=== PATIENT | male | born 1990 | race Hispanic/Latino ===

== ENCOUNTER 2018-07-20 20:59 | Emergency (ER) | payer SELFPAY ==
[2018-07-20] MEDS ORDERED: DEXAMETHASONE 10 MG/ML VIAL ONE (21:57)
[2018-07-20 21:58] LABS: Absolute Monocytes 0.6 K/uL (0.1-1.3); Absolute Neutrophil 6.9 K/uL (1.8-8.0); Basophils % 0.4 % (0-1.3); Eosinophils % 2.9 % (0-4.4); Lymphocytes % 20.1 % (15.3-44.8); MPV 9.3 fL (7.6-11.3); Monocytes % 6.3 % (3.3-12.3); RBC Red Blood Cell Count 4.75 M/uL (4.33-5.43)
[2018-07-20] MEDS ORDERED: ONDANSETRON 4 MG/2 ML VIAL ONE (21:58)
[2018-07-20] MEDS ORDERED: FAMOTIDINE 20 MG/2 ML VIAL IV ONE (21:58)
[2018-07-20] MEDS ORDERED: NA CHLORIDE 0.9% 1,000 ML ONE ×2 (21:58→23:44)
[2018-07-20] MEDS ORDERED: METOCLOPRAMIDE 10 MG/2mL INJ ONE (21:58)
[2018-07-20] MEDS ORDERED: DIPHENHYDRAMINE 50 MG/ML VIAL ONE (21:58)
[2018-07-20 21:59] LABS: Protime INR 1.01
[2018-07-20 22:06] LABS: Potassium 4.1 mmol/L (3.5-5.1)
[2018-07-20] MEDS ORDERED: KETOROLAC 30 MG/ML INJ ONE (23:05)
--- NOTE | 2018-07-20 23:25 | EDPHYS ---
Physician Documentation [facility] Name: Glenroy Hedrick III Age: 27 yrs Sex: Male : 1990 Arrival Date: 07/20/2018 Time: 21:01 Bed 19 Private MD: ED Physician Oscar Hoover HPI: 07/20 21:45 This 27 yrs old Male presents to ER via Ambulatory with complaints of cp Headache, Eye Pain, Vomiting, pressure in head. 21:45 The patient complains of pain to the top of head, left side of the back of head and cp right side of the back of head. 21:45 The patient describes the headache as aching, constant. cp 21:45 Onset: The symptoms/episode began/occurred this morning, and became worse today. cp Associated signs and symptoms: Pertinent positives: nausea, Photophobia vomiting, Pertinent negatives: altered mental status, fever, neck stiffness, paresthesias, sinus congestion, sinus tenderness, weakness. Severity of symptoms: in the emergency department the pain a " 7" out of "10". Headache History: Denies prior headaches. Historical: - Allergies: 21:10 No Known Allergies; aa1 - Home Meds: 21:10 None [Active]; aa1 - PMHx: 21:10 None; aa1 - PSHx: 21:10 None; aa1 - Immunization history:: Flu vaccine is not up to date. - Social history:: Smoking status: Patient uses tobacco products, smokes one-half pack cigarettes per day. - Ebola Screening: : No symptoms or risks identified at this time. ROS: 21:50 Constitutional: Negative for body aches, chills, fever, poor PO intake. cp 21:50 Eyes: Negative for injury, pain, redness, and discharge. cp 21:50 ENT: Negative for drainage from ear(s), ear pain, sinus congestion, sinus pain, sore throat, difficulty swallowing, difficulty handling secretions. 21:50 Neck: Negative for pain with movement, pain at rest, stiffness, swollen nodes. 21:50 Cardiovascular: Negative for chest pain, edema, palpitations. 21:50 Respiratory: Negative for cough, shortness of breath, wheezing. 21:50 Abdomen/GI: Positive for nausea, vomiting, Negative for abdominal pain, diarrhea, constipation, hematemesis. 21:50 Back: Negative for pain at rest, pain with movement. 21:50 : Negative for urinary symptoms, flank pain, testicular pain 21:50 Skin: Negative for cellulitis, rash. 21:50 Neuro: Positive for headache, Negative for altered mental status, dizziness, numbness, tingling, weakness. 21:50 All other systems are negative. Exam: 22:00 Head/Face: Normocephalic, atraumatic. cp 22:00 Constitutional: The patient appears in no acute distress, alert, awake, non-diaphoretic, non-toxic, well developed, well nourished, uncomfortable. 22:00 Eyes: Periorbital structures: appear normal, Pupils: equal, round, and reactive to cp light and accomodation, Extraocular movements: intact throughout, Conjunctiva: normal, no exudate, no injection, Sclera: no appreciated abnormality, Lids and lashes: appear normal, bilaterally. 22:00 ENT: External ear(s): are unremarkable, Ear canal(s): are normal, clear, TM's: dullness, bilaterally, Nose: is normal, Mouth: Lips: moist, Oral mucosa: pink and intact, moist, Posterior pharynx: is normal, airway is patent, no erythema, no exudate, Voice: is normal. 22:00 Neck: ROM/movement: is normal, is supple, no range of motions limitations, no meningismus, no nuchal rigidity, Lymph nodes: no appreciated lymphadenopathy. 22:00 Chest/axilla: Inspection: normal, Palpation: is normal, no crepitus, no tenderness. 22:00 Cardiovascular: Rate: normal, Rhythm: regular. 22:00 Respiratory: the patient does not display signs of respiratory distress, Respirations: normal, no use of accessory muscles, no retractions, no splinting, no tachypnea, labored breathing, is not present, Breath sounds: are clear throughout, no decreased breath sounds, no stridor, no wheezing. 22:00 Abdomen/GI: Inspection: abdomen appears normal, Palpation: abdomen is soft and non-tender, in all quadrants. 22:00 Skin: no rash present. 22:00 Neuro: Orientation: to person, place \\T\\ time. Mentation: is normal, Cerebellar function: is grossly normal, Motor: moves all fours, strength is normal, Sensation: is normal. Vital Signs: 21:10 BP 137 / 88; Pulse 72; Resp 16; Temp 98.0; Pulse Ox 100% on R/A; Weight 90.72 kg (R); aa1 Height 5 ft. 11 in. (180.34 cm); Pain 7/10; 22:15 BP 113 / 72; Pulse 65; Resp 16 S; Temp 98(O); Pulse Ox 100% on R/A; Pain 5/10; cc3 23:11 BP 120 / 64; Pulse 61; Resp 15 S; Temp 98.1(O); Pulse Ox 100% on R/A; cc3 07/21 00:31 BP 114 / 55; Pulse 59; Resp 16; Pulse Ox 100% on R/A; mt 07/20 21:10 Body Mass Index 27.89 (90.72 kg, 180.34 cm) aa1 MDM: 07/20 21:25 Patient medically screened. cp 22:00 Differential diagnosis: cluster headache, hypertensive headache, meningitis, cp meningoencephalitis, migraine, subarachnoid bleed, subdural hematoma, tension headache. 23:18 Refusal of service: The patient/guardian displays adequate decision making capability cp and despite a detailed discussion of alternatives, benefits, risks, and consequences refuses: Lumbar Puncture procedure. 23:23 Data reviewed: vital signs, nurses notes, lab test result(s), radiologic studies, CT cp scan. 23:23 Counseling: I had a detailed discussion with the patient and/or guardian regarding: the cp historical points, exam findings, and any diagnostic results supporting the discharge/admit diagnosis, lab results, radiology results, to return to the emergency department if symptoms worsen or persist or if there are any questions or concerns that arise at home. Response to treatment: the patient's symptoms have markedly improved after treatment, and as a result, I will discharge patient. ED course: VSS. Patient reports headache improved and refuses spinal tap at this time. Will discharge to home for continued monitoring. 07/20 21:38 Order name: CBC with Diff; Complete Time: 22:07 cp 07/20 21:38 Order name: BMP; Complete Time: 22:07 cp 07/20 22:07 Interpretation: Normal except: GFR 82. cp 07/20 21:38 Order name: CT Head Brain wo Cont cp 07/20 21:38 Order name: PT-INR; Complete Time: 22:07 cp 07/20 21:38 Order name: IV; Complete Time: 21:44 cp Administered Medications: 21:45 Drug: Pepcid 20 mg Route: IVP; Site: right antecubital; cc3 22:15 Follow up: Response: No adverse reaction; Pain is decreased cc3 21:45 Drug: NS 0.9% 1000 ml Route: IV; Rate: 1 bolus; Site: right antecubital; cc3 23:00 Follow up: Response: No adverse reaction; IV Status: Completed infusion; IV Intake: cc3 1000ml 21:48 Drug: Zofran 4 mg Route: IVP; Site: right antecubital; cc3 22:38 Follow up: Response: No adverse reaction; Nausea is decreased cc3 21:51 Drug: Reglan 10 mg Route: IVP; Site: right antecubital; cc3 22:39 Follow up: Response: No adverse reaction; Pain is decreased cc3 21:54 Drug: Decadron - Dexamethasone 10 mg Route: IVP; Site: right antecubital; cc3 22:38 Follow up: Response: No adverse reaction; Pain is decreased cc3 21:58 Drug: Benadryl 25 mg Route: IVP; Site: right antecubital; cc3 22:38 Follow up: Response: No adverse reaction cc3 23:05 Drug: TORadol - Ketorolac 15 mg Route: IVP; Site: right antecubital; cc3 23:30 Follow up: Response: No adverse reaction; Pain is decreased cc3 23:30 Drug: NS 0.9% 1000 ml Route: IV; Rate: 1 bolus; Site: right antecubital; cc3 07/21 00:25 Follow up: Response: No adverse reaction; IV Status: Completed infusion; IV Intake: cc3 1000ml 07/20 23:31 Drug: morphine 2 mg Route: IVP; Site: right antecubital; cc3 07/21 00:05 Follow up: Response: No adverse reaction; Pain is decreased cc3 Disposition: 19:40 Co-signature as Attending Physician, Oscar Hoover MD. Disposition: 07/20/18 23:24 Discharged to Home. Impression: Headache. - Condition is Stable. - Discharge Instructions: General Headache Without Cause, Form - Excuse from Work, School, or Physical Activity. - Prescriptions for Fiorinal 50- 325-40 mg Oral Capsule - take 1 capsule by ORAL route every 4 hours As needed - not to exceed 6 capsules per day; 20 capsule. Ibuprofen 800 mg Oral Tablet - take 1 tablet by ORAL route every 8 hours As needed take with food; 30 tablet. Zofran 4 mg Oral Tablet - take 1 tablet by ORAL route every 12 hours As needed; 20 tablet. - Medication Reconciliation Form, Thank You Letter, Antibiotic Education, Prescription Opioid Use, Work release form form. - Follow up: Private Physician; When: 1 - 2 days; Reason: Recheck today's complaints. - Problem is new. - Symptoms have improved. Signatures: Dispatcher [employer] EDMS Roz Elliott RN RN aa1 Naveen Abad PA PA cp Starr, Gregory, MD MD gs Cordel, Charlene cc3 Corrections: (The following items were deleted from the chart) 00:35 07/20 23:24 07/20/2018 23:24 Discharged to Home. Impression: Headache. Condition is cc3 Stable. Forms are Medication Reconciliation Form, Thank You Letter, Antibiotic Education, Prescription Opioid Use. Follow up: Private Physician; When: 1 - 2 days; Reason: Recheck today's complaints. Problem is new. Symptoms have improved. cp
--- NOTE | 2018-07-20 23:25 | ER ---
Nurse's Notes [facility] Name: Glenroy Hedrick III Age: 27 yrs Sex: Male : 1990 Arrival Date: 07/20/2018 Time: 21:01 Bed 19 [facility] MD: Diagnosis: Headache Presentation: 07/20 21:09 Presenting complaint: Patient states: headache, vomiting, and pressure behind eyes aa1 since this am. Transition of care: patient was not received from another setting of care. Onset of symptoms was July 20, 2018. Risk Assessment: Do you want to hurt yourself or someone else? Patient reports no desire to harm self or others. Initial Sepsis Screen: Does the patient meet any 2 criteria? No. Patient's initial sepsis screen is negative. Does the patient have a suspected source of infection? No. Patient's initial sepsis screen is negative. Care prior to arrival: None. 21:09 Method Of Arrival: Ambulatory aa1 21:09 Acuity: DIONTE 3 aa1 Triage Assessment: 21:10 Headache History: The patient has had previous headaches and this one is different than aa1 previous episodes. General: Appears in no apparent distress. uncomfortable, Behavior is calm, cooperative, appropriate for age. 21:28 Pain: Pain currently is 7 out of 10 on a pain scale. Pain began this morning Also cc3 complains of nausea. Neuro: Level of Consciousness is awake, alert, obeys commands, Oriented to person, place, time, situation, Appropriate for age. Historical: - Allergies: 21:10 No Known Allergies; aa1 - Home Meds: 21:10 None [Active]; aa1 - PMHx: 21:10 None; aa1 - PSHx: 21:10 None; aa1 - Immunization history:: Flu vaccine is not up to date. - Social history:: Smoking status: Patient uses tobacco products, smokes one-half pack cigarettes per day. - Ebola Screening: : No symptoms or risks identified at this time. Screenin:28 Abuse screen: Denies threats or abuse. Denies injuries from another. Nutritional cc3 screening: No deficits noted. Tuberculosis screening: No symptoms or risk factors identified. Fall Risk Ambulatory Aid- None/Bed Rest/Nurse Assist (0 pts). Gait- Normal/Bed Rest/Wheelchair (0 pts) Mental Status- Oriented to own ability (0 pts). Assessment: 21:28 General: Appears in no apparent distress. uncomfortable, Behavior is calm, cooperative, cc3 appropriate for age. Pain: Complains of pain in head Pain currently is 7 out of 10 on a pain scale. Quality of pain is described as aching, Pain began this morning. Neuro: Level of Consciousness is awake, alert, obeys commands, Oriented to person, place, time, situation, Appropriate for age. Cardiovascular: Denies chest pain, Patient's skin is warm and dry. Respiratory: Airway is patent Respiratory effort is even, unlabored, Respiratory pattern is regular, symmetrical. GI: Abdomen is round non-distended. : No signs and/or symptoms were reported regarding the genitourinary system. EENT: Reports pressure behind his eyes. Derm: No signs and/or symptoms reported regarding the dermatologic system. Musculoskeletal: Circulation, motion, and sensation intact. Range of motion: intact in all extremities. 22:15 Reassessment: Patient appears in no apparent distress at this time. Patient and/or cc3 family updated on plan of care and expected duration. Pain level reassessed. Patient is alert, oriented x 3, equal unlabored respirations, skin warm/dry/pink. Patient came back from CT scan department, awaiting result. 23:10 Reassessment: Patient appears in no apparent distress at this time. Patient and/or cc3 family updated on plan of care and expected duration. Pain level reassessed. Patient is alert, oriented x 3, equal unlabored respirations, skin warm/dry/pink. 07/21 00:30 Reassessment: Patient appears in no apparent distress at this time. Patient and/or cc3 family updated on plan of care and expected duration. Pain level reassessed. Patient is alert, oriented x 3, equal unlabored respirations, skin warm/dry/pink. Ordered IV fluid is completed, SALEEM Abad discharged the patient home with prescription given. IV cannula removed and patient left ER vitally stable and ambulatory with his family. Patient denies pain at this time. Patient states feeling better. Patient states symptoms have improved. Vital Signs: 07/20 21:10 BP 137 / 88; Pulse 72; Resp 16; Temp 98.0; Pulse Ox 100% on R/A; Weight 90.72 kg (R); aa1 Height 5 ft. 11 in. (180.34 cm); Pain 7/10; 22:15 BP 113 / 72; Pulse 65; Resp 16 S; Temp 98(O); Pulse Ox 100% on R/A; Pain 5/10; cc3 23:11 BP 120 / 64; Pulse 61; Resp 15 S; Temp 98.1(O); Pulse Ox 100% on R/A; cc3 07/21 00:31 BP 114 / 55; Pulse 59; Resp 16; Pulse Ox 100% on R/A; mt 07/20 21:10 Body Mass Index 27.89 (90.72 kg, 180.34 cm) aa1 ED Course: 07/20 21:01 Patient arrived in ED. es 21:10 Triage completed. aa1 21:10 Arm band placed on left wrist. Patient placed in an exam room, on a stretcher. aa1 21:23 Naveen Abad PA is PHCP. cp 21:23 Oscar Hoover MD is Attending Physician. cp 21:28 Briana Cintron is Primary Nurse. cc3 21:28 Patient has correct armband on for positive identification. Placed in gown. Bed in low cc3 position. Call light in reach. Side rails up X 1. Pulse ox on. NIBP on. 21:44 Inserted saline lock: 20 gauge in right antecubital area, using aseptic technique. wy Blood collected. 21:50 Patient moved to NV via wheelchair. nj 22:00 CT completed. Patient tolerated procedure well. Patient moved back from NV. nj 22:09 CT Head Brain wo Cont In Process Unspecified. EDMS 07/21 00:30 No provider procedures requiring assistance completed. IV discontinued, intact, cc3 bleeding controlled, No redness/swelling at site. Pressure dressing applied. Administered Medications: 07/20 21:45 Drug: Pepcid 20 mg Route: IVP; Site: right antecubital; cc3 22:15 Follow up: Response: No adverse reaction; Pain is decreased cc3 21:45 Drug: NS 0.9% 1000 ml Route: IV; Rate: 1 bolus; Site: right antecubital; cc3 23:00 Follow up: Response: No adverse reaction; IV Status: Completed infusion; IV Intake: cc3 1000ml 21:48 Drug: Zofran 4 mg Route: IVP; Site: right antecubital; cc3 22:38 Follow up: Response: No adverse reaction; Nausea is decreased cc3 21:51 Drug: Reglan 10 mg Route: IVP; Site: right antecubital; cc3 22:39 Follow up: Response: No adverse reaction; Pain is decreased cc3 21:54 Drug: Decadron - Dexamethasone 10 mg Route: IVP; Site: right antecubital; cc3 22:38 Follow up: Response: No adverse reaction; Pain is decreased cc3 21:58 Drug: Benadryl 25 mg Route: IVP; Site: right antecubital; cc3 22:38 Follow up: Response: No adverse reaction cc3 23:05 Drug: TORadol - Ketorolac 15 mg Route: IVP; Site: right antecubital; cc3 23:30 Follow up: Response: No adverse reaction; Pain is decreased cc3 23:30 Drug: NS 0.9% 1000 ml Route: IV; Rate: 1 bolus; Site: right antecubital; cc3 07/21 00:25 Follow up: Response: No adverse reaction; IV Status: Completed infusion; IV Intake: cc3 1000ml 07/20 23:31 Drug: morphine 2 mg Route: IVP; Site: right antecubital; cc3 07/21 00:05 Follow up: Response: No adverse reaction; Pain is decreased cc3 Intake: 07/20 23:00 IV: 1000ml; Total: 1000ml. cc3 07/21 00:25 IV: 1000ml; Total: 2000ml. cc3 Outcome: 07/20 23:24 Discharge ordered by . antonio 07/21 00:30 Discharged to home ambulatory, with family. cc3 Condition: stable Discharge instructions given to patient, Instructed on discharge instructions, follow up and referral plans. medication usage, Demonstrated understanding of instructions, follow-up care, medications, Prescriptions given X 3. 00:35 Patient left the ED. cc3 Signatures: Dispatcher [employer] Roz Camacho RN RN aa1 Vicki Hein Corey, PA PA cp Jordan, Nathan nj Thompson, Briana Prtaer mt cc3 Corrections: (The following items were deleted from the chart) 07/20 22:39 22:15 BP 113 / 72; Pulse 65bpm; Resp 16bpm; Spontaneous; Pulse Ox 100% RA; Temp 98F cc3 Oral; cc3 07/21 01:22 01:21 Response: No adverse reaction; IV Status: Completed infusion; IV Intake: 1000ml cc3 cc3
[2018-07-20] MEDS ORDERED: MORPHINE 2 MG/ML SYR ONE (23:44)
--- NOTE | 2018-07-21 10:11 | RAD REPORT ---
EXAM DESCRIPTION: CT - Head Brain Wo Cont - 07/20/2018 10:41 pm CLINICAL HISTORY: 27 years Male HEADACHE COMPARISON: None TECHNIQUE: Images were obtained in axial, sagittal, and coronal planes. This exam was performed according to our departmental dose-optimization program which includes use of Automated Exposure Control, adjustment of the mA and/or kV according to patient size and/or use of i terative reconstruction technique. FINDINGS: Ventricular system appears normal. No abnormal areas of increased or decreased attenuation are seen involving the brain parenchyma. No e xtra-axial fluid collections noted. No evidence for skull fracture. Symmetric aeration mastoid air cells bilaterally. Unremarkable parana lefty sinuses. IMPRESSION: No acute intracranial abnormality. No evidence for hemorrhage, mass lesion, or large acu te infarction. Electronically signed by: Kristin Garcia MD 07/20/2018 10:16 PM CDT Due to temporary technical issues with the PACS/Fluency reporting system, reports are being signed by the in house radiologist as a courtesy to ensure prompt reporting. The interpreting radiologist is f ully responsible for the content of the report.
== END 2018-07-21 00:35 | disposition home or self-care (01) ==
LOC: ER 20:59
DX: R51 Headache (principal); R11.2 Nausea with vomiting, unspecified; F17.210 Nicotine dependence, cigarettes, uncomplicated
CPT/HCPCS: 36415; 70450; 80048; 85025; 85610; 96361; 96374; 96375; 99284; J1100; J2270; J2405; J2765; J7030

== ENCOUNTER 2020-05-24 19:19 | Emergency (ER) | payer SELFPAY ==
[2020-05-24 21:11] LABS: SARS-COV-2 RT PCR NEGATIVE (NEGATIVE)
--- NOTE | 2020-05-24 21:27 | EDPHYS ---
Physician Documentation [facility] Name: Glenroy Hedrick III Age: 29 yrs Sex: Male : 1990 Arrival Date: 05/24/2020 Time: 19:20 Bed 15 Private MD: ED Physician Esteban Oconnor HPI: 05/24 20:36 This 29 yrs old Male presents to ER via Ambulatory with complaints of Cough, rn chills, URI. 20:36 The patient has shortness of breath at rest. Onset: The symptoms/episode began/occurred rn 2 day(s) ago. Duration: The symptoms are intermittent. The patient's shortness of breath is aggravated by coughing, is alleviated by rest. Associated signs and symptoms: Pertinent positives: non-productive cough, Pertinent negatives: chest pain, fever, hemoptysis, loss of consciousness. Severity of symptoms: At their worst the symptoms were mild in the emergency department the symptoms are unchanged. The patient has not experienced similar symptoms in the past. The patient has not recently seen a physician. Reports 2 days of sore throat, cough, nasal congestion, chills, 2 kids with similar symptoms as well. . Historical: - Allergies: 19:28 No Known Allergies; mg2 - Home Meds: 19:28 None [Active]; mg2 - PMHx: 19:28 None; mg2 - PSHx: 19:28 None; mg2 - Immunization history:: Flu vaccine is not up to date. - Social history:: Smoking status: Patient reports the use of cigarette tobacco products, Patient uses alcohol, Patient/guardian denies using street drugs, IV drugs. - Family history:: not pertinent. - Hospitalizations: : No recent hospitalization is reported. ROS: 20:36 Constitutional: + chills Eyes: Negative for injury, pain, redness, and discharge, Neck: rn Negative for injury, pain, and swelling, Cardiovascular: Negative for chest pain, palpitations, and edema, Respiratory: Negative for wheezing, and pleuritic chest pain, Abdomen/GI: Negative for abdominal pain, nausea, vomiting, diarrhea, and constipation, Back: Negative for injury and pain, : Negative for injury, bleeding, discharge, and swelling, MS/Extremity: Negative for injury and deformity, Skin: Negative for injury, rash, and discoloration, Neuro: Negative for numbness, tingling, and seizure. Exam: 20:36 Constitutional: This is a well developed, well nourished patient who is awake, alert, rn and in no acute distress. Head/Face: Normocephalic, atraumatic. Eyes: Pupils equal round and reactive to light, extra-ocular motions intact. Lids and lashes normal. Conjunctiva and sclera are non-icteric and not injected. Cornea within normal limits. Periorbital areas with no swelling, redness, or edema. ENT: No stridor Neck: Trachea midline, no masses palpated, and no cervical lymphadenopathy. Supple, full range of motion without nuchal rigidity, or vertebral point tenderness. No Meningismus. Cardiovascular: Regular rate and rhythm. No pulse deficits. Respiratory: No increased work of breathing, no retractions or nasal flaring. Skin: Warm, dry MS/ Extremity: Pulses equal, no cyanosis. Neuro: Awake and alert, GCS 15, oriented to person, place, time, and situation. Cranial nerves II-XII grossly intact. Motor strength 5/5 in all extremities. Sensory grossly intact. Cerebellar exam normal. Normal gait. Vital Signs: 19:25 BP 144 / 87; Pulse 80; Resp 18; Temp 98.7; Pulse Ox 100% on R/A; Weight 95.25 kg; mg2 Height 5 ft. 9 in. (175.26 cm); Pain 0/10; 21:02 BP 146 / 69; Pulse 65; Resp 18; Temp 98(O); Pulse Ox 100% on R/A; Pain 4/10; fu 19:25 Body Mass Index 31.01 (95.25 kg, 175.26 cm) mg2 MDM: 20:32 Patient medically screened. rn 21:24 Differential diagnosis: viral syndrome, flu, COVID. Data reviewed: vital signs, nurses rn notes, lab test result(s), and as a result, I will discharge patient. Counseling: I had a detailed discussion with the patient and/or guardian regarding: the historical points, exam findings, and any diagnostic results supporting the discharge/admit diagnosis, lab results, the need for outpatient follow up, to return to the emergency department if symptoms worsen or persist or if there are any questions or concerns that arise at home. Special discussion: I discussed with the patient/guardian in detail that at this point there is no indication for admission to the hospital. It is understood, however, that if the symptoms persist or worsen the patient needs to return immediately for re-evaluation. ED course: Neg COVID and flu, likely viral syndrome given children in house with similar symptoms. . 05/24 21:11 Order name: COVID-19/FLU A+B; Complete Time: 21:24 EDMS Administered Medications: No medications were administered Disposition: 05/24/20 21:26 Discharged to Home. Impression: Acute upper respiratory infection, unspecified. - Condition is Stable. - Discharge Instructions: Upper Respiratory Infection, Adult, Viral Respiratory Infection. - Medication Reconciliation Form, Thank You Letter, Antibiotic Education, Prescription Opioid Use, Work release form form. - Follow up: Private Physician; When: As needed; Reason: Recheck today's complaints, Re-evaluation by your physician. - Problem is new. - Symptoms have improved. Signatures: Dispatcher [employer] EDMS Esteban Oconnor MD MD rn Umadhay, Felix, RN RN fu Gardose, Michele, RN RN mg2 Corrections: (The following items were deleted from the chart) 20:13 19:33 Influenza Screen (A \T\ B)+BA.LAB.BRZ ordered. [facility] EDMS 20:14 19:33 CORONAVIRUS+MR.LAB.BRZ ordered. [facility] EDMS 21:42 21:26 05/24/2020 21:26 Discharged to Home. Impression: Acute upper respiratory fu infection, unspecified. Condition is Stable. Forms are Medication Reconciliation Form, Thank You Letter, Antibiotic Education, Prescription Opioid Use. Follow up: Private Physician; When: As needed; Reason: Recheck today's complaints, Re-evaluation by your physician. Problem is new. Symptoms have improved. rn
--- NOTE | 2020-05-24 21:27 | ER ---
Nurse's Notes [facility] Name: Glenroy Hedrick III Age: 29 yrs Sex: Male : 1990 Arrival Date: 05/24/2020 Time: 19:20 Bed 15 Private MD: Diagnosis: Acute upper respiratory infection, unspecified Presentation: 05/24 19:25 Chief complaint: Patient states: i woke up this morning with cough, runny nose, mg2 sneezing, shortness of breath. denies fever and chest pain. Coronavirus screen: Client denies travel out of the [place] in the last 14 days. Client presents with at least one sign or symptom that may indicate coronavirus-19. Standard/surgical mask placed on the client. Provider contacted for isolation considerations. Ebola Screen: No symptoms or risks identified at this time. Initial Sepsis Screen: Does the patient meet any 2 criteria? No. Patient's initial sepsis screen is negative. Does the patient have a suspected source of infection? No. Patient's initial sepsis screen is negative. Risk Assessment: Do you want to hurt yourself or someone else? Patient reports no desire to harm self or others. Onset of symptoms was May 24, 2020. 19:25 Method Of Arrival: Ambulatory mg2 19:25 Acuity: DIONTE 4 mg2 Triage Assessment: 19:28 General: Appears in no apparent distress. Behavior is calm. mg2 Historical: - Allergies: 19:28 No Known Allergies; mg2 - Home Meds: 19:28 None [Active]; mg2 - PMHx: 19:28 None; mg2 - PSHx: 19:28 None; mg2 - Immunization history:: Flu vaccine is not up to date. - Social history:: Smoking status: Patient reports the use of cigarette tobacco products, Patient uses alcohol, Patient/guardian denies using street drugs, IV drugs. - Family history:: not pertinent. - Hospitalizations: : No recent hospitalization is reported. Screenin:07 Abuse screen: Denies threats or abuse. Nutritional screening: No deficits noted. fu Tuberculosis screening: No symptoms or risk factors identified. Fall Risk None identified. Assessment: 20:17 General: patient said he will wait in the truck. mg2 21:02 General: Appears in no apparent distress. Behavior is calm, cooperative, appropriate fu for age, Reports chills for 1-2 days, body pain. Pain: Complains of pain in body pain Pain currently is 5 out of 10 on a pain scale. 21:04 Neuro: Level of Consciousness is awake, alert, obeys commands, Oriented to person, fu place, time, situation, Comic Book Writer are equal bilaterally Moves all extremities. Gait is steady, Speech is normal, Facial symmetry appears normal. Cardiovascular: Denies chest pain, nausea, vomiting, Rhythm is regular. Respiratory: Airway is patent Respiratory effort is even, unlabored, Breath sounds are clear bilaterally. GI: Reports diarrhea, Patient currently denies abdominal pain, nausea, vomiting. : No signs and/or symptoms were reported regarding the genitourinary system. EENT: No signs and/or symptoms were reported regarding the EENT system. Musculoskeletal: No signs and/or symptoms reported regarding the musculoskeletal system. Vital Signs: 19:25 BP 144 / 87; Pulse 80; Resp 18; Temp 98.7; Pulse Ox 100% on R/A; Weight 95.25 kg; mg2 Height 5 ft. 9 in. (175.26 cm); Pain 0/10; 21:02 BP 146 / 69; Pulse 65; Resp 18; Temp 98(O); Pulse Ox 100% on R/A; Pain 4/10; fu 19:25 Body Mass Index 31.01 (95.25 kg, 175.26 cm) mg2 ED Course: 19:20 Patient arrived in ED. cl3 19:27 Triage completed. mg2 19:28 Arm band placed on. mg2 19:33 COVID swab sent to lab. Flu and/or RSV swab sent to lab. mg2 20:32 Esteban Oconnor MD is Attending Physician. rn 20:33 Tad Rosario, MILADY is Primary Nurse. fu 21:07 Patient has correct armband on for positive identification. Call light in reach. Side fu rails up X 1. Pulse ox on. NIBP on. 21:35 No provider procedures requiring assistance completed. Patient did not have IV access fu during this emergency room visit. Administered Medications: No medications were administered Outcome: 21:26 Discharge ordered by . rn 21:40 Discharged to home ambulatory. fu 21:40 Condition: stable 21:40 Discharge instructions given to patient, Instructed on discharge instructions, follow up and referral plans. Demonstrated understanding of instructions. 21:42 Patient left the ED. fu Signatures: Esteban Oconnor MD MD rn Tad Rosario, RN RN fu Dajuan Rahman, RN RN [facility] Kevin Hardy cl3 Corrections: (The following items were deleted from the chart) 21:07 21:02 Pain: Complains of pain in body pain Pain fu
[2020-05-25 06:19] VITALS: O2SAT 100
[2020-05-25 06:39] VITALS: BP 146/69; TEMP 98
== END 2020-05-24 21:42 | disposition home or self-care (01) ==
LOC: ER 19:19
DX: J06.9 Acute upper respiratory infection, unspecified (principal); Z20.822 Contact with and (suspected) exposure to COVID-19; F17.210 Nicotine dependence, cigarettes, uncomplicated
CPT/HCPCS: 0240U; 99283

== ENCOUNTER 2021-01-29 08:17 | Emergency (ER) | payer SELFPAY ==
[2021-01-29 10:00] LABS: SARS-COV-2 RT PCR POSITIVE (NEGATIVE)
--- NOTE | 2021-01-29 10:04 | ER ---
Nurse's Notes [facility] Name: Glenroy Hedrick III Age: 30 yrs Sex: Male : 1990 Arrival Date: 01/29/2021 Time: 08:20 Bed 12 Private MD: Diagnosis: Coronavirus infection, unspecified Presentation: 01/29 08:25 Chief complaint: Patient states: cold sweats, chills, equilibrium feels off, ears are iw clogged up, no fever, symptoms started Friday. Coronavirus screen: Client presents with at least one sign or symptom that may indicate coronavirus-19. Ebola Screen: Patient negative for fever greater than or equal to 101.5 degrees Fahrenheit, and additional compatible Ebola Virus Disease symptoms Patient denies exposure to infectious person. Patient denies travel to an Ebola-affected area in the 21 days before illness onset. No symptoms or risks identified at this time. Initial Sepsis Screen: Does the patient meet any 2 criteria? No. Patient's initial sepsis screen is negative. Does the patient have a suspected source of infection? No. Patient's initial sepsis screen is negative. Risk Assessment: Do you want to hurt yourself or someone else? Patient reports no desire to harm self or others. Onset of symptoms was January 26, 2021. 08:25 Method Of Arrival: Ambulatory iw 08:25 Acuity: DIONTE 4 iw Triage Assessment: 10:00 General: Appears in no apparent distress. Behavior is calm, cooperative. iw Historical: - Allergies: 08:27 No Known Allergies; iw - Home Meds: 08:27 None [Active]; iw - PMHx: 08:27 None; iw - PSHx: 08:27 None; iw - Immunization history:: Client reports having NOT received the Covid vaccine. - Social history:: Smoking status: Reported history of juuling and/or vaping. Screenin:15 Abuse screen: Denies threats or abuse. Denies injuries from another. Nutritional iw screening: No deficits noted. Tuberculosis screening: No symptoms or risk factors identified. Fall Risk None identified. Assessment: 09:00 General: Appears in no apparent distress. Behavior is calm, cooperative. Pain: iw Complains of pain in body aches. Neuro: Level of Consciousness is awake, alert, obeys commands, Oriented to person, place, time, situation, Moves all extremities. Full function. Cardiovascular: Patient's skin is warm and dry. Respiratory: Respiratory effort is even, unlabored, Respiratory pattern is regular, symmetrical. GI: Abdomen is non-distended. Derm: Skin is intact, is healthy with good turgor. Musculoskeletal: Range of motion: intact in all extremities. Vital Signs: 08:25 BP 140 / 97; Pulse 83; Resp 16; Temp 98.3; Pulse Ox 99% on R/A; Weight 99.79 kg; Height iw 5 ft. 9 in. (175.26 cm); 08:25 Body Mass Index 32.49 (99.79 kg, 175.26 cm) iw ED Course: 08:20 Patient arrived in ED. am2 08:27 Triage completed. iw 08:28 Arm band placed on. iw 08:31 Jaqueline Larsen FNP-C is PHCP. kb 08:31 Naveen Zarate MD is Attending Physician. kb 09:00 Patient has correct armband on for positive identification. iw 09:16 Jessenia Go RN is Primary Nurse. 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 iw 10:15 No provider procedures requiring assistance completed. Patient did not have IV access iw during this emergency room visit. Administered Medications: No medications were administered Outcome: 10:03 Discharge ordered by . kb 10:15 Discharged to home ambulatory. iw 10:15 Condition: good 10:15 Discharge instructions given to patient, Instructed on discharge instructions, follow up and referral plans. Demonstrated understanding of instructions, follow-up care. 10:16 Patient left the ED. iw Signatures: Jaqueline Larsen FNP-C FNP-Jessenia Richter, RN RN iw Disha Fisher am2 Corrections: (The following items were deleted from the chart) 08:28 08:25 Pulse 83bpm; Resp 16bpm; Pulse Ox 99% RA; Temp 98.3F; 99.79 kg; Height 5 ft. 9 iw in.; BMI: 32.4; iw
--- NOTE | 2021-01-29 10:04 | EDPHYS ---
Physician Documentation [facility] Name: Glenroy Hedrick III Age: 30 yrs Sex: Male : 1990 Arrival Date: 01/29/2021 Time: 08:20 Bed 12 Private MD: LI Physician Naveen Zarate HPI: 01/29 10:11 This 30 yrs old Male presents to ER via Ambulatory with complaints of Flu kb Symptoms, bodyaches, lightheaded. 10:11 The patient or guardian reports cough, that is intermittent, described as mild, flu kb symptoms, low-grade fever, myalgias, no appetite. The patient has not recently seen a physician. 10:11 Onset: The symptoms/episode began/occurred 4 day(s) ago. Severity of symptoms: At their kb worst the symptoms were moderate, in the emergency department the symptoms are unchanged. Modifying factors: The symptoms are alleviated by nothing, the symptoms are aggravated by nothing. Associated signs and symptoms: The patient has no apparent associated signs or symptoms. The patient has not experienced similar symptoms in the past. Historical: - Allergies: 08:27 No Known Allergies; iw - Home Meds: 08: None [Active]; iw - PMHx: : None; iw - PSHx: : None; iw - Immunization history:: Client reports having NOT received the Covid vaccine. - Social history:: Smoking status: Reported history of juuling and/or vaping. ROS: 10:10 Abdomen/GI: Negative for abdominal pain, nausea, vomiting, diarrhea, and constipation. kb 10:10 Constitutional: Positive for body aches, chills, fatigue, malaise, poor PO intake. 10:10 ENT: Positive for rhinorrhea, sore throat. 10:10 Respiratory: Positive for cough. 10:10 All other systems are negative. Exam: 10:10 Constitutional: This is a well developed, well nourished patient who is awake, alert, kb and in no acute distress. Head/Face: Normocephalic, atraumatic. ENT: Moist Mucous membranes Cardiovascular: Regular rate and rhythm with a normal S1 and S2. No gallops, murmurs, or rubs. No pulse deficits. Respiratory: Respirations even and unlabored. No increased work of breathing. Talking in full sentences Skin: Warm, dry with normal turgor. Normal color. MS/ Extremity: Pulses equal, no cyanosis. Neurovascular intact. Full, normal range of motion. Neuro: Awake and alert, GCS 15, oriented to person, place, time, and situation. Moves all extremities. Normal gait. Psych: Awake, alert, with orientation to person, place and time. Behavior, mood, and affect are within normal limits. Vital Signs: 08:25 BP 140 / 97; Pulse 83; Resp 16; Temp 98.3; Pulse Ox 99% on R/A; Weight 99.79 kg; Height iw 5 ft. 9 in. (175.26 cm); 08:25 Body Mass Index 32.49 (99.79 kg, 175.26 cm) iw MDM: 08:31 Patient medically screened. kb 10:10 Data reviewed: vital signs, nurses notes. Data interpreted: Pulse oximetry: on room air kb is 99 %. Interpretation: normal. Counseling: I had a detailed discussion with the patient and/or guardian regarding: the historical points, exam findings, and any diagnostic results supporting the discharge/admit diagnosis, lab results, the need for outpatient follow up, a family practitioner, to return to the emergency department if symptoms worsen or persist or if there are any questions or concerns that arise at home. 01/29 08:31 Order name: COVID-19/FLU A+B (Document "Date of Onset" if Symptomatic); Complete Time: kb 10:01 12 08:31 Order name: Strep; Complete Time: 09:06 kb 12 09:05 Order name: Throat Culture EDMS Administered Medications: No medications were administered Disposition: 01/30 06:52 Co-signature as Attending Physician, Naveen Zarate MD I agree with the assessment and madiha plan of care. Disposition Summary: 01/29/21 10:03 Discharge Ordered Location: Home kb Condition: Stable kb Diagnosis - Coronavirus infection, unspecified kb Followup: kb - With: Emergency Department - When: As needed - Reason: Worsening of condition Followup: kb - With: Private Physician - When: 2 - 3 days - Reason: Recheck today's complaints, Continuance of care, Re-evaluation by your physician Discharge Instructions: - Discharge Summary Sheet kb - Viral Respiratory Infection, [id number] kb - COVID-19 kb Forms: - Medication Reconciliation Form kb - Thank You Letter kb - Antibiotic Education kb - Prescription Opioid Use kb Signatures: Dispatcher [employer] Jaqueline Guy, MAINTENANCE TRAINER-C MAINTENANCE TRAINER-Naveen Kulkarni MD MD cha Williams, Irene, RN RN iw
[2021-01-29 10:23] VITALS: BP 140/97; TEMP 98.3; O2SAT 99
== END 2021-01-29 10:16 | disposition home or self-care (01) ==
LOC: ER 08:17
DX: U07.1 COVID-19 (principal)
CPT/HCPCS: 0240U; 87070; 87081; 99281

== ENCOUNTER 2021-09-05 16:50 | Emergency (ER) | payer SELFPAY ==
[2021-09-05] MEDS ORDERED: NA CHLORIDE 0.9% 1,000 ML ONE (18:01)
[2021-09-05] MEDS ORDERED: ONDANSETRON 4 MG/2 ML VIAL ONE (18:01)
[2021-09-05 18:12] LABS: Absolute Lymphocytes (CBC) 1.4 K/uL (0.7-4.9); Lymphocytes % 12.5 % (15.3-44.8); MCV 92.5 fL (80-100); MPV 8.8 fL (7.6-11.3); RBC Red Blood Cell Count 4.75 M/uL (4.33-5.43)
[2021-09-05 18:32] LABS: Albumin 4.8 g/dL (3.4-5.0); Bilirubin Direct 0.2 mg/dL (0-0.2); Bilirubin Total 0.6 mg/dL (0.2-1.0); Magnesium 2.7 mg/dL (1.8-2.4); Potassium 4.1 mmol/L (3.5-5.1); Protein, Total 8.6 g/dL (6.4-8.2); Troponin High Sensitivity 5.8 pg/mL (<58.9)
--- NOTE | 2021-09-05 18:42 | RAD REPORT ---
EXAM DESCRIPTION: RAD - Chest Single View - 09/05/2021 6:35 pm CLINICAL HISTORY: CHEST PAIN COMPARISON: None TECHNIQUE: AP portable chest image was obtained 09/05/2021 6:35 pm . FINDINGS: Lungs are clear. Heart and vasculature are normal. No measurable pleural effusion and no p neumothorax. No acute bony abnormality seen. No acute aortic findings suspected. IMPRESSION: No acute cardiopulmonary process.
--- NOTE | 2021-09-05 18:44 | ER ---
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 17:48 Method Of Arrival: Ambulatory iw 17:49 Coronavirus screen: At this time, the client does not indicate any symptoms associated iw with coronavirus-19. Ebola Screen: Patient negative for fever greater than or equal to 101.5 degrees Fahrenheit, and additional compatible Ebola Virus Disease symptoms Patient denies exposure to infectious person. Patient denies travel to an Ebola-affected area in the 21 days before illness onset. No symptoms or risks identified at this time. Initial Sepsis Screen: Does the patient meet any 2 criteria? No. Patient's initial sepsis screen is negative. Does the patient have a suspected source of infection? No. Patient's initial sepsis screen is negative. Risk Assessment: Do you want to hurt yourself or someone else? Patient reports no desire to harm self or others. Onset of symptoms was September 05, 2021. 17:49 Acuity: DIONTE 3 iw Triage Assessment: 17:50 General: Appears in no apparent distress. Behavior is calm, cooperative. iw Historical: - Allergies: 17:49 No Known Allergies; iw Screenin:50 Abuse screen: Denies threats or abuse. Denies injuries from another. Nutritional iw screening: No deficits noted. Tuberculosis screening: No symptoms or risk factors identified. Fall Risk None identified. Assessment: 17:48 General: Appears in no apparent distress. Behavior is calm, cooperative. iw 17:48 Pain: Denies pain. Neuro: Level of Consciousness is awake, alert, obeys commands, iw Oriented to person, place, time, situation. Cardiovascular: Patient's skin is warm and dry. Respiratory: Respiratory effort is even, unlabored, Respiratory pattern is regular. Derm: Skin is intact, is healthy with good turgor. Vital Signs: 17:49 BP 157 / 100; Pulse 92; Resp 16; Temp 98.3; Pulse Ox 98% on R/A; iw ED Course: 16:53 Patient arrived in ED. as 17:37 Naveen Abad PA is PHCP. cp 17:37 Naveen Zarate MD is Attending Physician. cp 17:50 Triage completed. iw 17:51 Inserted saline lock: 20 gauge in right antecubital area, using aseptic technique. zm Blood collected. 18:00 Basic Metabolic Panel Sent. zm 18:00 CBC with Diff Sent. zm 18:00 LFT's Sent. zm 18:00 Magnesium Sent. zm 18:00 Troponin HS Sent. zm 18:00 CK Sent. zm 18:36 XRAY Chest (1 view) In Process Unspecified. EDMS 19:48 No provider procedures requiring assistance completed. IV discontinued, intact, iw bleeding controlled, No redness/swelling at site. Pressure dressing applied. 19:49 Jessenia Go, RN is Primary Nurse. iw Administered Medications: 18:00 Drug: NS 0.9% 1000 ml Route: IV; Rate: 1 bolus; Site: right antecubital; iw 18:45 Follow up: IV Status: Order to discontinue infusion iw 18:00 Drug: Zofran (Ondansetron) 4 mg Route: IVP; Site: right antecubital; iw 18:15 Follow up: Response: No adverse reaction iw Outcome: 18:43 Discharge ordered by . cp 19:49 Patient left the ED. iw Signatures: Dispatcher [employer] Kiara Hernandez Irene, RN RN iw Naveen Abad PA PA Shayna Eduardo
--- NOTE | 2021-09-05 18:44 | EDPHYS ---
Physician Documentation [facility] Name: Glenroy Hedrick III Age: 30 yrs Sex: Male : 1990 Arrival Date: 09/05/2021 Time: 16:53 Bed Waiting Private MD: LI Physician Naveen Zarate HPI: 09/05 18:00 This 30 yrs old Male presents to ER via Ambulatory with complaints of Heat cp Exposure, dehydration, Pain All Over. 18:00 generalized pain, nausea. cp 18:00 Onset: The symptoms/episode began/occurred today. 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 C/o generalized pain and weakness. Denies chest pain, denies vomiting. Historical: - Allergies: 17:49 No Known Allergies; iw ROS: 18:05 Constitutional: Positive for body aches, chills, Negative for fever. cp 18:05 Eyes: Negative for injury, pain, redness, and discharge. cp 18:05 ENT: Negative for drainage from ear(s), ear pain, sore throat, difficulty swallowing, difficulty handling secretions. 18:05 Cardiovascular: Negative for edema. 18:05 Respiratory: Negative for cough, shortness of breath, wheezing. 18:05 Abdomen/GI: Positive for nausea, Negative for vomiting, diarrhea, constipation. 18:05 Skin: Negative for cellulitis, rash. 18:05 Neuro: Positive for weakness, Negative for altered mental status, dizziness, headache, numbness. 18:05 All other systems are negative. Exam: 18:10 Constitutional: The patient appears in no acute distress, alert, awake, cp non-diaphoretic, non-toxic, well developed, well nourished. 18:10 Head/Face: Normocephalic, atraumatic. cp 18:10 Eyes: Periorbital structures: appear normal, Pupils: equal, round, and reactive to light and accomodation, Extraocular movements: intact throughout, Conjunctiva: normal, no exudate, no injection, Sclera: no appreciated abnormality, Lids and lashes: appear normal, bilaterally. 18:10 ENT: External ear(s): are unremarkable, Nose: is normal, Mouth: Lips: moist, Oral mucosa: pink and intact, moist, Posterior pharynx: Airway: no evidence of obstruction, patent. 18:10 Neck: ROM/movement: is normal, is supple, without pain, no range of motions limitations, no meningismus. 18:10 Chest/axilla: Inspection: normal. 18:10 Cardiovascular: Rate: normal, Rhythm: regular, Edema: is not appreciated, JVD: is not appreciated. 18:10 Respiratory: the patient does not display signs of respiratory distress, Respirations: normal, no use of accessory muscles, no retractions, labored breathing, is not present, Breath sounds: are clear throughout, no decreased breath sounds, no stridor, no wheezing. 18:10 Abdomen/GI: Inspection: abdomen appears normal, Palpation: abdomen is soft and non-tender, in all quadrants. 18:10 Skin: cellulitis, is not appreciated, no rash present. 18:10 Neuro: Orientation: to person, place \T\ time. Mentation: is normal, Cerebellar function: is grossly normal, Motor: moves all fours, strength is normal, Sensation: is normal. Vital Signs: 17:49 BP 157 / 100; Pulse 92; Resp 16; Temp 98.3; Pulse Ox 98% on R/A; iw MDM: 18:43 Patient medically screened. cp 18:43 Data reviewed: vital signs, nurses notes, lab test result(s), EKG. cp 18:43 Differential Diagnosis dehydration, electrolyte abnormality, arrythmia. Test cp interpretation: by ED physician or midlevel provider: ECG. Counseling: I had a detailed discussion with the patient and/or guardian regarding: the historical points, exam findings, and any diagnostic results supporting the discharge/admit diagnosis, lab results, to return to the emergency department if symptoms worsen or persist or if there are any questions or concerns that arise at home. Response to treatment: the patient's symptoms have markedly improved after treatment, patient is well hydrated. VSS. Patient reports symptoms improved after IV fluids and requesting discharge to home. 09/05 17:52 Order name: Basic Metabolic Panel; Complete Time: 18:42 cp 09/05 18:42 Interpretation: Normal except: CL 108; CRE 1.35; GFR 72. cp 09/05 17:52 Order name: CBC with Diff; Complete Time: 18:42 cp 09/05 18:42 Interpretation: Normal except: WBC 11.1; TOMY% 78.8; LYM% 12.5; NEUT A 8.7. cp 09/05 17:52 Order name: LFT's; Complete Time: 18:42 09/05 17:52 Order name: Magnesium; Complete Time: 18:42 09/05 17:52 Order name: Troponin HS; Complete Time: 18:42 09/05 17:52 Order name: XRAY Chest (1 view) 09/05 17:52 Order name: Cardiac monitoring 09/05 17:52 Order name: EKG - Nurse/Tech 09/05 17:52 Order name: CK; Complete Time: 18:42 09/05 17:52 Order name: IV Saline Lock; Complete Time: 18:00 09/05 17:52 Order name: Labs collected and sent; Complete Time: 18:00 09/05 17:52 Order name: O2 Per Protocol 09/05 17:52 Order name: O2 Sat Monitoring 09/05 17:52 Order name: Urine Dipstick-Ancillary (obtain specimen) cp Administered Medications: 18:00 Drug: NS 0.9% 1000 ml Route: IV; Rate: 1 bolus; Site: right antecubital; iw 18:45 Follow up: IV Status: Order to discontinue infusion iw 18:00 Drug: Zofran (Ondansetron) 4 mg Route: IVP; Site: right antecubital; iw 18:15 Follow up: Response: No adverse reaction iw Disposition Summary: 09/05/21 18:43 Discharge Ordered Location: Home cp Problem: new cp Symptoms: have improved cp Condition: Stable cp Diagnosis - Heat exhaustion, unspecified cp Followup: cp - With: Private Physician - When: 1 - 2 days - Reason: Recheck today's complaints Discharge Instructions: - Discharge Summary Sheet cp - Heat Exhaustion cp - Preventing Heat Exhaustion, Adult cp Forms: - Medication Reconciliation Form cp - Thank You Letter cp - Antibiotic Education cp - Prescription Opioid Use cp Signatures: Dispatcher [employer] Jessenia Encinas RN RN Naveen Wick PA PA cp
[2021-09-05 20:00] VITALS: BP 157/100; TEMP 98.3; O2SAT 98
== END 2021-09-05 19:49 | disposition home or self-care (01) ==
LOC: ER 16:50
DX: T67.5XXA Heat exhaustion, unspecified, initial encounter (principal)
CPT/HCPCS: 36415; 71045; 80048; 80076; 82550; 83735; 84484; 85025; J2405; J7030

== ENCOUNTER 2022-04-29 06:34 | Emergency (ER) | payer SELFPAY ==
--- OUTSIDE RECORDS SUMMARY | 2022-04-29 06:38 | XMS REPORT | Continuity of Care Document ---
:1990 Author Organization [facility] t Address [address] [facility] [address] [place] [address] 18[address] Care Team Providers Name Role Phone Pcp, Patient Does Not Have A Primary Care Physician [phone] Gabriela Marino RN Attending Clinician Unavailable Only, Ang Db Test Attending Clinician Unavailable Saeed Gaines Attending Clinician SAEED HAN Attending Clinician Unavailable Landon Bañuelos Attending Clinician ALNDON RILEY Attending Clinician Unavailable Problems Condition Condition Condition Status Onset Resolution Last Treating Co mments Source Name Details Category Date Date Treatment Clinician Date No known No known Disease Unive rs active active ity of problems problems [facility] Allergies, Adverse Reactions, Alerts Allergy Allergy Status Severity Reaction(s) Onset Inactive Treating Comm ents Source Name Type Date Date Clinician NO KNOWN Drug Active Univers ALLERGIE Class ity of S [facility] Social History Social Habit Start Date Stop Date Quantity Comments Source Exposure to Not sure [facility] SARS-CoV-2 (event) Medica l Branch Sex Assigned At [birth year] [facility] 00:00:00 00:00:00 [facility] Smoking Status Start Date Stop Date Source Unknown if ever smoked [facility] Medications Ordered Filled Start Stop Current Ordering Indication Dosage Frequency Signature Comments Components Source Medication Medication Date Date Medication? Clinician (SIG) Name Name ondansetron 2020-02- No 8mg 8 mg, Univ ers (ZOFRAN-ODT 04-04 Oral, ity of ) 17:15: 16:30 ONCE, 1 [place] disintegrat 00 :00 dose, On Medi luh ing tablet Ana Branch 8 mg 02/01/21 at 1115, BHARATH ondansetron 2020-02 Yes [id number] 4mg Take 1 Univers (ZOFRAN) 4 2-09 tablet by ity of mg tablet 00:00: mouth [place] 00 every 8 Medical (eight) Branch hours as needed for Nausea and Vomiting (N/V). benzonatate 2020-02 Yes [id number] 100mg Take 1 Univers 100 mg 2-09 capsule by ity of capsule 00:00: mouth 3 [place] 00 (three) Medical times Branch daily as needed for Cough. ondansetron 2020-02 Yes [id number] 4mg Take 1 Univers (ZOFRAN) 4 2-09 tablet by ity of mg tablet 00:00: mouth [place] 00 every 8 Medical (eight) Branch hours as needed for Nausea and Vomiting (N/V). benzonatate 2020-02 Yes [id number] 100mg Take 1 Univers 100 mg 2-09 capsule by ity of capsule 00:00: mouth 3 [place] 00 (three) Medical times Branch daily as needed for Cough. ondansetron 2020-02 Yes [id number] 4mg Take 1 Univers (ZOFRAN) 4 2-09 tablet by ity of mg tablet 00:00: mouth [place] 00 every 8 Medical (eight) Branch hours as needed for Nausea and Vomiting (N/V). benzonatate 2020-02 Yes [id number] 100mg Take 1 Univers 100 mg 2-09 capsule by ity of capsule 00:00: mouth 3 [place] 00 (three) Medical times [place] daily as needed for Cough. Vital Signs Vital Name Observation Time Observation Value Comments Source Systolic blood 2021-02-01 15:25:00 134 [facility]Hg[facility] Di[facility] 2021-02-01 15:25:00 87 mm[Hg] [facility] [place] Heart rate 2021-02-01 15:25:00 100 /min [facility] Body temperature 2021-02-01 15:25:00 37.06 Heather [facility] Respiratory rate 2021-02-01 15:25:00 97 /min [facility] Body weight 2021-02-01 15:25:00 99.791 kg Universi ty of [facility] Oxygen saturation in 2021-02-01 15:25:00 97 /min University Arterial blood by [facility] Pulse oximetry [place] Procedures Procedure Date / Time Performed Performing Clinician Sour e RAPID INFLUENZA A/B 2021-02-01 15:30:00 Shawn Falk [facility] COVID-19 (ID NOW 2021-02-01 15:30:00 Shawn Falk [facility] RAPID TESTING) [facility] NOTICE OF PRIVACY 2021-02-01 15:29:47 Doctor Unassigned, No Univ [facility] PRACTICES Name [facility] CONSENT/REFUSAL FOR 2021-02-01 15:18:41 Doctor Unassigned, No [facility] DIAGNOSIS AND Name [facility] TREATMENT Encounters Start End Encounter Admission Attending Care Care Encounter Source Date/Time Date/Time Type Type Clinicians Facility Department ID 2021-02-09 2021-02-09 Telephone AARTI Marino [id number] Univers 00:00:00 00:00:00 Gabriela VALVERDE [id number] i ty of [facility] [id number] [place] as [id number] [facility] 019 Branch 2021-02-08 2021-02-08 Laboratory Only, Ang Db Test [facility] [id number] Univers 09:30:00 09:45:00 Only Saeed Han [facility] [id number] ity [facility] [id number] [place] JUAN?BLEA [id number] [place] [address] MEDICAL OFFICE BUILDING 2021-02-08 2021-02-08 Outpatient R EMELY [facility] [id number] Univers 09:30:00 09:30:00 [facility] 2021-02-01 2021-02-01 [facility] [id number] Univers 09:31:00 10:33:00 Landon ROBBINS [id number] i ty [facility] [id number] [place] [facility] [id number] [facility] 084 Branch 2021-02-01 2021-02-01 Emergency X OSVALDO, [facility] ERT [id number] Univers 09:31:00 10:33:00 LANDON pierce of [facility] Results This patient has no known results.
[2022-04-29 07:48] LABS: SARS-COV-2 RT PCR NEGATIVE (NEGATIVE)
--- NOTE | 2022-04-29 07:55 | ER ---
Nurse's Notes [facility] Name: Glenroy Hedrick III Age: 31 yrs Sex: Male : 1990 Arrival Date: 04/29/2022 Time: 06:42 Bed 8 Private MD: Diagnosis: Acute upper respiratory infection, unspecified Presentation: 04/29 06:56 Chief complaint: Patient states: "I just really want a COVID test. I have body aches as6 and overall just don't feel good". Coronavirus screen: At this time, the client does not indicate any symptoms associated with coronavirus-19. Ebola Screen: No symptoms or risks identified at this time. Initial Sepsis Screen: Does the patient meet any 2 criteria? No. Patient's initial sepsis screen is negative. Does the patient have a suspected source of infection? No. Patient's initial sepsis screen is negative. Risk Assessment: Do you want to hurt yourself or someone else? Patient reports no desire to harm self or others. Onset of symptoms was April 26, 2022. 06:56 Acuity: DIONTE 4 as6 06:56 Method Of Arrival: Ambulatory as6 Triage Assessment: 07:01 General: Appears in no apparent distress. Behavior is calm, cooperative. General: as6 Reports feeling ill for fatigue for. Pain: Complains of pain in generalized. Historical: - Allergies: 06:55 No Known Allergies; as6 - Home Meds: 06:55 None [Active]; as6 - PMHx: 06:55 None; as6 - PSHx: 06:55 shoulder; as6 - Immunization history:: Client reports having NOT received the Covid vaccine. - Social history:: Smoking status: Reported history of juuling and/or vaping. - Family history:: not pertinent. Screenin:01 [facility] ED Fall Risk Assessment (Adult) Score/Fall Risk Level 0 - 2 = Low Risk. Abuse as6 screen: Denies threats or abuse. Denies injuries from another. Nutritional screening: No deficits noted. Tuberculosis screening: No symptoms or risk factors identified. Assessment: 08:22 Reassessment: Patient appears in no apparent distress at this time. Patient and/or iw family updated on plan of care and expected duration. Pain level reassessed. Patient is alert, oriented x 3, equal unlabored respirations, skin warm/dry/pink. Vital Signs: 06:54 BP 147 / 111; Pulse 74; Resp 18 S; Temp 98.5(O); Pulse Ox 100% on R/A; Weight 104.33 kg as6 (R); Height 5 ft. 11 in. (180.34 cm) (R); Pain 7/10; 08:23 BP 148 / 96; Pulse 85; Resp 16; Pulse Ox 97% on R/A; iw 06:54 Body Mass Index 32.08 (104.33 kg, 180.34 cm) as6 ED Course: 06:42 Patient arrived in ED. [email or web address] 06:54 Arm band placed on. as6 06:58 Annette Menon, RN is Primary Nurse. [email or web address] 06:59 Felice Dickson MD is Attending Physician. rt 07:00 Triage completed. as6 07:00 Bed in low position. Call light in reach. as6 07:00 COVID-19/FLU A+B Sent. kd3 08:22 No provider procedures requiring assistance completed. Patient did not have IV access iw during this emergency room visit. Administered Medications: No medications were administered Medication: 07:01 VIS not applicable for this client. as6 Outcome: 07:54 Discharge ordered by . rt 08:22 Discharged to home ambulatory. iw 08:22 Condition: good 08:22 Discharge instructions given to patient, Instructed on discharge instructions, follow up and referral plans. Demonstrated understanding of instructions, follow-up care. 08:23 Patient left the ED. iw Signatures: Jessenia Go RN MILADY iw Tania Sandoval [email or web address] Trent Carbajal RN RN as6 Annette Menon, RN MILADY kd3 Felice Dickson MD MD rt
--- NOTE | 2022-04-29 07:55 | EDPHYS ---
Physician Documentation [facility] Name: Glenroy Hedrick III Age: 31 yrs Sex: Male : 1990 Arrival Date: 04/29/2022 Time: 06:42 Bed 8 Private MD: ED Physician Felice Dickson HPI: 04/29 07:04 This 31 yrs old Male presents to ER via Ambulatory with complaints of Cough, rt Congestion. 07:04 Patient presents to the ED with cough, congestion, body aches for about 4 days. He is rt requesting COVID test. The patient denies difficulty breathing, other acute complaints, he took NyQuil and Tylenol to no relief. Symptoms are mild in severity, no other aggravating or alleviating factors.. Historical: - Allergies: 06:55 No Known Allergies; as6 - Home Meds: 06:55 None [Active]; as6 - PMHx: 06:55 None; as6 - PSHx: 06:55 shoulder; as6 - Immunization history:: Client reports having NOT received the Covid vaccine. - Social history:: Smoking status: Reported history of juuling and/or vaping. - Family history:: not pertinent. ROS: 07:04 Cardiovascular: Negative for chest pain, palpitations, and edema, Abdomen/GI: Negative rt for abdominal pain, nausea, vomiting, diarrhea, and constipation, MS/Extremity: Negative for injury and deformity, Skin: Negative for injury, rash, and discoloration, Neuro: Negative for headache, weakness, numbness, tingling, and seizure, Psych: Negative for depression, anxiety, suicide ideation, homicidal ideation, and hallucinations. 07:04 Constitutional: Positive for body aches, malaise. 07:04 Respiratory: Positive for cough, Negative for shortness of breath. Exam: 07:04 Constitutional: This is a well developed, well nourished patient who is awake, alert, rt and in no acute distress. Head/Face: Normocephalic, atraumatic. Chest/axilla: Normal chest wall appearance and motion. Nontender with no deformity. No lesions are appreciated. Cardiovascular: Regular rate and rhythm with a normal S1 and S2. No gallops, murmurs, or rubs. Normal PMI, no JVD. No pulse deficits. Respiratory: Lungs have equal breath sounds bilaterally, clear to auscultation and percussion. No rales, rhonchi or wheezes noted. No increased work of breathing, no retractions or nasal flaring. Abdomen/GI: Soft, non-tender, with normal bowel sounds. No distension or tympany. No guarding or rebound. No evidence of tenderness throughout. Skin: Warm, dry with normal turgor. Normal color with no rashes, no lesions, and no evidence of cellulitis. MS/ Extremity: Pulses equal, no cyanosis. Neurovascular intact. Full, normal range of motion. Neuro: Awake and alert, GCS 15, oriented to person, place, time, and situation. Cranial nerves II-XII grossly intact. Motor strength 5/5 in all extremities. Sensory grossly intact. Cerebellar exam normal. Normal gait. Psych: Awake, alert, with orientation to person, place and time. Behavior, mood, and affect are within normal limits. Vital Signs: 06:54 BP 147 / 111; Pulse 74; Resp 18 S; Temp 98.5(O); Pulse Ox 100% on R/A; Weight 104.33 kg as6 (R); Height 5 ft. 11 in. (180.34 cm) (R); Pain 7/10; 08:23 BP 148 / 96; Pulse 85; Resp 16; Pulse Ox 97% on R/A; iw 06:54 Body Mass Index 32.08 (104.33 kg, 180.34 cm) as6 MDM: 06:59 Patient medically screened. rt 07:54 Differential Diagnosis: Bronchitis Upper Respiratory Infection Asthma Exacerbation rt Viral Syndrome Pneumonia. Data reviewed: vital signs, nurses notes, radiologic studies. I considered the following discharge prescriptions or medication management in the emergency department Antibiotics: At this time antibiotics are not recommended. Test considered but Not performed: X-ray: Clear breath sounds, low suspicion for pneumonia, x-ray not indicated. Counseling: I had a detailed discussion with the patient and/or guardian regarding: the historical points, exam findings, and any diagnostic results supporting the discharge/admit diagnosis, lab results, the need for outpatient follow up. 04/29 06:56 Order name: COVID-19/FLU A+B as6 04/29 07:48 Order name: COVID-19/FLU A+B; Complete Time: 07:52 EDMS Administered Medications: No medications were administered Disposition Summary: 04/29/22 07:54 Discharge Ordered Location: Home rt Problem: new rt Symptoms: are unchanged rt Condition: Stable rt Diagnosis - Acute upper respiratory infection, unspecified rt Followup: rt - With: Private Physician - When: 2 - 3 days - Reason: Discharge Instructions: - Discharge Summary Sheet rt - Upper Respiratory Infection, Adult rt Forms: - Work release form iw - Medication Reconciliation Form rt - Thank You Letter rt - Antibiotic Education rt - Prescription Opioid Use rt Signatures: Dispatcher [employer] Trent Lai RN RN as6 Felice Dickson MD MD rt
[2022-04-29 08:28] VITALS: TEMP 98.5
[2022-04-29 09:14] VITALS: BP 148/96; O2SAT 97
== END 2022-04-29 08:23 | disposition home or self-care (01) ==
LOC: ER 06:34
DX: J06.9 Acute upper respiratory infection, unspecified (principal); Z20.822 Contact with and (suspected) exposure to COVID-19
CPT/HCPCS: 0240U; 99283

== ENCOUNTER 2022-10-29 15:23 | Emergency (ER) | payer SELFPAY ==
--- OUTSIDE RECORDS SUMMARY | 2022-10-29 15:26 | XMS REPORT | Continuity of Care Document ---
:1990 Author Organization [facility] t Address [address] [place] [address] [place] [address] [id number] Care Team Providers Name Role Phone Pcp, Patient Does Not Have A Primary Care Physician +[phone] 00-0000 Gabriela Marino RN Attending Clinician Unavailable Only, Manav Db Test Attending Clinician Unavailable Saeed Gaines Attending Clinician SAEED HAN Attending Clinician Unavailable Landon Bañuelos Attending Clinician LANDON RILEY Attending Clinician Unavailable Problems Condition Condition Condition Status Onset Resolution Last Treating Co mments Source Name Details Category Date Date Treatment Clinician Date No known No known Disease Unive rs active active ity of problems problems [facility] Allergies, Adverse Reactions, Alerts Allergy Allergy Status Severity Reaction(s) Onset Inactive Treating Comm ents Source Name Type Date Date Clinician NO KNOWN Drug Active Univers ALLERGIE Class ity of S [facility] Social History Social Habit Start Date Stop Date Quantity Comments Source Exposure to Not sure [facility] SARS-CoV-2 (event) Medica l Branch Sex Assigned At [birth year] [facility] 00:00:00 00:00:[address] [facility] Smoking Status Start Date Stop Date Source Unknown if ever smoked [facility] Medications Ordered Filled Start Stop Current Ordering Indication Dosage Frequency Signature Comments Components Source Medication Medication Date Date Medication? Clinician (SIG) Name Name ondansetron 2020-02- No 8mg 8 mg, Univ ers (ZOFRAN-ODT 04-04 Oral, ity of ) 17:15: 16:30 ONCE, 1 [place] disintegrat 00 :00 dose, On Medi luh ing tablet Ana Branch 8 mg 02/01/21 at 1115, BHARATH ondansetron 2020-02 Yes [id number] 4mg Take 1 Univers (ZOFRAN) 4 2-09 tablet by ity of mg tablet 00:00: mouth [place] 00 every 8 Medical (eight) Branch hours as needed for Nausea and Vomiting (N/V). benzonatate 2020-02 Yes [id number] 100mg Take 1 Univers 100 mg 2-09 capsule by ity of capsule 00:00: mouth 3 [place] 00 (three) Medical times Branch daily as needed for Cough. ondansetron 2020-02 Yes [id number] 4mg Take 1 Univers (ZOFRAN) 4 2-09 tablet by ity of mg tablet 00:00: mouth [place] 00 every 8 Medical (eight) Branch hours as needed for Nausea and Vomiting (N/V). benzonatate 2020-02 Yes [id number] 100mg Take 1 Univers 100 mg 2-09 capsule by ity of capsule 00:00: mouth 3 [place] 00 (three) Medical times Branch daily as needed for Cough. ondansetron 2020-02 Yes [id number] 4mg Take 1 Univers (ZOFRAN) 4 2-09 tablet by ity of mg tablet 00:00: mouth [place] 00 every 8 Medical (eight) Branch hours as needed for Nausea and Vomiting (N/V). benzonatate 2020-02 Yes [id number] 100mg Take 1 Univers 100 mg 2-09 capsule by ity of capsule 00:00: mouth 3 [place] 00 (three) Medical times [place] daily as needed for Cough. Vital Signs Vital Name Observation Time Observation Value Comments Source Systolic blood 2021-02-01 15:25:00 134 mm[Hg] [facility] Diastolic blood 2021-02-01 15:25:00 87 mm[Hg] [facility] Heart rate 2021-02-01 15:25:00 100 /min [facility] Body temperature 2021-02-01 15:25:00 37.06 Heather [facility] Respiratory rate 2021-02-01 15:25:00 97 /min [facility] Body weight 2021-02-01 15:25:00 99.791 kg Universi ty of [facility] Oxygen saturation in 2021-02-01 15:25:00 97 /min University Arterial blood by [facility] Pulse oximetry [place] Procedures Procedure Date / Time Performed Performing Clinician Sour e RAPID INFLUENZA A/B 2021-02-01 15:30:00 Shawn Falk [facility] COVID-19 (ID NOW 2021-02-01 15:30:00 Shawn Falk [facility] RAPID TESTING) [facility] NOTICE OF PRIVACY 2021-02-01 15:29:47 Doctor Unassigned, No Univ [facility] PRACTICES Name [facility] CONSENT/REFUSAL FOR 2021-02-01 15:18:41 [facility]igned, No [facility] AND Name [facility] TREATMENT Encounters Start End Encounter Admission Attending Care Care Encounter Source Date/Time Date/Time Type Type Clinicians Facility Department ID 2021-02-09 2021-02-09 Telephone AARTI Marino [id number] Univers 00:00:00 00:00:00 Gabriela VALVERDE [id number] i ty of [facility] [id number] [place] [id number] [facility] 019 Branch 2021-02-08 2021-02-08 Laboratory Only, Ang Db Test [facility] 1.2.8 40.114 [id number] Univers 09:30:00 09:45:00 Only Saeed Han [facility] [id number] ity [facility] [id number] [place] JUAN?BLEA [id number] [place] [address] MEDICAL OFFICE BUILDING 2021-02-08 2021-02-08 Outpatient R EMELY [facility] [id number] Univers 09:30:00 09:30:00 [facility] 2021-02-01 2021-02-01 [facility] [id number] [facility] 09:31:00 10:33:00 Landon ROBBINS [id number] i ty [facility] [id number] [place] [facility] [id number] [facility] 084 Branch 2021-02-01 2021-02-01 Emergency X OSVALDO, [facility] ERT [id number] Univers 09:31:00 10:33:00 LANDON pierce of [facility] Results This patient has no known results.
[2022-10-29 16:27] LABS: SARS-CoV-2 Antigen Rapid Res Negative (Negative)
--- NOTE | 2022-10-29 16:38 | EDPHYS ---
Physician Documentation [facility] Name: Glenroy Hedrick III Age: 32 yrs Sex: Male : 1990 Arrival Date: 10/29/2022 Time: 15:23 Bed IW2 Private MD: ED Physician Esteban Oconnor HPI: 10/29 15:28 This 32 yrs old Male presents to ER via Unassigned with complaints of COVID snw Test, Weakness. Historical: - Allergies: 15:39 No Known Allergies; iw - Home Meds: 15:39 None [Active]; iw - PMHx: 15:39 None; iw - PSHx: 15:39 Shoulder; iw - Social history:: Smoking status: . ROS: 16:41 Constitutional: Negative for fever, chills, and weight loss, Eyes: Negative for injury, snw pain, redness, and discharge, ENT: Negative for injury and discharge, Sore throat, runny nose Neck: Negative for injury, pain, and swelling, Cardiovascular: Negative for chest pain, palpitations, and edema, Respiratory: Negative for shortness of breath, cough, wheezing, and pleuritic chest pain, Abdomen/GI: Negative for abdominal pain, nausea, vomiting, diarrhea, and constipation, Back: Negative for injury and pain, : Negative for injury, bleeding, discharge, and swelling, MS/Extremity: Negative for injury and deformity, Skin: Negative for injury, rash, and discoloration, Neuro: Negative for headache, weakness, numbness, tingling, and seizure, Psych: Negative for depression, anxiety, suicide ideation, homicidal ideation, and hallucinations. Exam: 16:42 Constitutional: This is a well developed, well nourished patient who is awake, alert, snw and in no acute distress. Head/Face: Normocephalic, atraumatic. Eyes: Pupils equal round and reactive to light, extra-ocular motions intact. Lids and lashes normal. Conjunctiva and sclera are non-icteric and not injected. Cornea within normal limits. Periorbital areas with no swelling, redness, or edema. 16:42 Neck: Trachea midline, no thyromegaly or masses palpated, and no cervical lymphadenopathy. Supple, full range of motion without nuchal rigidity, or vertebral point tenderness. No Meningismus. Chest/axilla: Normal chest wall appearance and motion. Nontender with no deformity. No lesions are appreciated. Cardiovascular: Regular rate and rhythm with a normal S1 and S2. No gallops, murmurs, or rubs. Normal PMI, no JVD. No pulse deficits. Respiratory: Lungs have equal breath sounds bilaterally, clear to auscultation and percussion. No rales, rhonchi or wheezes noted. No increased work of breathing, no retractions or nasal flaring. Abdomen/GI: Soft, non-tender, with normal bowel sounds. No distension or tympany. No guarding or rebound. No evidence of tenderness throughout. Back: No spinal tenderness. No costovertebral tenderness. Full range of motion. Skin: Warm, dry with normal turgor. Normal color with no rashes, no lesions, and no evidence of cellulitis. MS/ Extremity: Pulses equal, no cyanosis. Neurovascular intact. Full, normal range of motion. Neuro: Awake and alert, GCS 15, oriented to person, place, time, and situation. Cranial nerves II-XII grossly intact. Motor strength 5/5 in all extremities. Sensory grossly intact. Cerebellar exam normal. Normal gait. Psych: Awake, alert, with orientation to person, place and time. Behavior, mood, and affect are within normal limits. 16:42 ENT: External ear(s): are unremarkable, Ear canal(s): are normal, TM's: are normal, Nose: is normal, Mouth: is normal, Posterior pharynx: erythema, that is moderate, Voice: is normal. Vital Signs: 15:38 BP 149 / 99; Pulse 89; Resp 16; Temp 98.4; Pulse Ox 98% ; Weight 106.59 kg; Height 5 iw ft. 11 in. ; 15:38 Body Mass Index 32.77 (106.59 kg, 180.34 cm) iw MDM: 16:32 Patient medically screened. snw 16:39 Differential diagnosis: viral Infection, bacterial infection. Data reviewed: vital snw signs, nurses notes, lab test result(s). I considered the following discharge prescriptions or medication management in the emergency department Medications were administered in the Emergency Department. See MAR. Counseling: I had a detailed discussion with the patient and/or guardian regarding the historical points, exam findings, and any diagnostic results supporting the discharge/admit diagnosis, lab results, the need for outpatient follow up, to return to the emergency department if symptoms worsen or persist or if there are any questions or concerns that arise at home. Special discussion: Based on the history and exam findings, there is no indication for further emergent testing or inpatient evaluation. I discussed with the patient/guardian the need to see the primary care provider for further evaluation of the symptoms. 10/29 15:45 Order name: SARS RAPID; Complete Time: 16:32 snw 10/29 15:45 Order name: Flu snw 10/29 15:45 Order name: Strep; Complete Time: 16:32 snw Administered Medications: 16:43 Drug: AZITHromycin PO 500 mg Route: PO; iw 17:00 Follow up: Response: No adverse reaction iw Disposition: 16:45 Co-signature as Attending Physician, Esteban Oconnor MD I reviewed the patient's care rn provided by the Advanced Practice Provider and agree with the diagnosis and treatment plan. Disposition Summary: 10/29/22 16:38 Discharge Ordered Location: Home snw Condition: Stable snw Diagnosis - Streptococcal pharyngitis snw Followup: snw - With: Emergency Department - When: As needed - Reason: Worsening of condition Followup: snw - With: Private Physician - When: 5 - 6 days - Reason: Recheck today's complaints, Continuance of care, Re-evaluation by your physician Discharge Instructions: - Discharge Summary Sheet snw - Strep Throat, Adult snw Forms: - Work release form snw - Medication Reconciliation Form snw - Thank You Letter snw - Antibiotic Education snw - Prescription Opioid Use snw - Patient Portal Instructions snw - Leadership Thank You Letter snw Prescriptions: - promethazine 25 mg Oral Tablet - take 1 tablet by ORAL route every 6 hours As needed; 20 tablet; Refills: 0, snw Product Selection Permitted - Zithromax 500 mg Oral Tablet - take 1 tablet by ORAL route once daily for 5 days; 5 tablet; Refills: 0, snw Product Selection Permitted Signatures: Dispatcher [employer] Sera Gomes FNP-C FNP-Csnw Jessenia Go RN RN iw Esteban Oconnor MD MD 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 Rhythm is regular. QRS [place] is Normal. MD interval is snw normal. QRS interval is normal. Q waves are Present in leads II, III, aVF. Clinical impression: NSR w/ Non-specific ST/T Changes. snw
--- NOTE | 2022-10-29 16:38 | ER ---
Nurse's Notes [facility] Name: Glenroy Hedrick III Age: 32 yrs Sex: Male : 1990 Arrival Date: 10/29/2022 Time: 15:23 Bed IW2 Private MD: Diagnosis: Streptococcal pharyngitis Presentation: 10/29 15:37 Chief complaint: Patient states: THROAT PAIN, BODY ACHES, SNEEZING, SENT HOME FROM WORK iw , TOLD TO GET CHECKED OUT, started on Friday. 15:37 Method Of Arrival: Ambulatory iw 15:38 Coronavirus screen: Client presents with at least one sign or symptom that may indicate iw coronavirus-19. Ebola Screen: Patient negative for fever greater than or equal to 101.5 degrees Fahrenheit, and additional compatible Ebola Virus Disease symptoms Patient denies exposure to infectious person. Patient denies travel to an Ebola-affected area in the 21 days before illness onset. No symptoms or risks identified at this time. Initial Sepsis Screen: Does the patient meet any 2 criteria? No. Patient's initial sepsis screen is negative. Does the patient have a suspected source of infection? No. Patient's initial sepsis screen is negative. Risk Assessment: Do you want to hurt yourself or someone else? Patient reports no desire to harm self or others. Onset of symptoms was October 25, 2022. 15:38 Acuity: DIONTE 4 iw Historical: - Allergies: 15:39 No Known Allergies; iw - Home Meds: 15:39 None [Active]; iw - PMHx: 15:39 None; iw - PSHx: 15:39 Shoulder; iw - Social history:: Smoking status: . Screenin:00 [facility] ED Fall Risk Assessment (Adult) Score/Fall Risk Level 0 - 2 = Low Risk. Abuse iw screen: Denies threats or abuse. Denies injuries from another. Nutritional screening: No deficits noted. Tuberculosis screening: No symptoms or risk factors identified. Assessment: 15:59 General: Appears in no apparent distress. Behavior is calm, cooperative. General: iw Reports feeling ill for fatigue for. Pain: Complains of pain in throat. Neuro: Level of Consciousness is awake, alert, obeys commands, Oriented to person, place, time, situation, Moves all extremities. Full function. Cardiovascular: Patient's skin is warm and dry. Respiratory: Respiratory effort is even, unlabored, Respiratory pattern is regular, symmetrical. Derm: Skin is intact, is healthy with good turgor. Musculoskeletal: Range of motion: intact in all extremities. Vital Signs: 15:38 BP 149 / 99; Pulse 89; Resp 16; Temp 98.4; Pulse Ox 98% ; Weight 106.59 kg; Height 5 iw ft. 11 in. ; 15:38 Body Mass Index 32.77 (106.59 kg, 180.34 cm) iw ED Course: 15:25 Patient arrived in ED. im 15:27 Sera Whitten FNP-C [facility]. snw 15:27 Esteban Oconnor MD is Attending Physician. snw 15:39 Triage completed. iw 15:39 Arm band placed on. iw 15:59 Jessenia Go, RN is Primary Nurse. iw 16:00 No provider procedures requiring assistance completed. Patient did not have IV access iw during this emergency room visit. 16:08 Strep Sent. mb9 16:08 Flu Sent. mb9 16:08 SARS RAPID Sent. mb9 Administered Medications: 16:43 Drug: AZITHromycin PO 500 mg Route: PO; iw 17:00 Follow up: Response: No adverse reaction iw Medication: 16:00 VIS not applicable for this client. iw Outcome: 16:38 Discharge ordered by . snw 16:43 Patient left the ED. iw Signatures: Sera Whitten FNP-C [employer]-Csnw Jessenia Go RN Luiza Lynn RN RN mb9 Tiffanie Saul im Corrections: (The following items were deleted from the chart) 15:40 15:38 Pulse 89bpm; Resp 16bpm; Pulse Ox 98%; Temp 98.4F; 106.59 kg; Height 5 ft. 11 iw in.; BMI: 32.7; iw
[2022-10-29] MEDS ORDERED: AMOXICILLIN TRIHYDR 250 MG CAP ONE (16:50)
[2022-10-29 16:54] VITALS: BP 149/99; TEMP 98.4; O2SAT 98
== END 2022-10-29 16:43 | disposition home or self-care (01) ==
LOC: ER 15:23
DX: J02.0 Streptococcal pharyngitis (principal); Z20.822 Contact with and (suspected) exposure to COVID-19
CPT/HCPCS: 36415; 87081; 87804; 87811; 99283